=== PATIENT | female | born 1990 | race Caucasian/White ===

== ENCOUNTER 2017-10-30 15:36 | Emergency (ER) | payer BC ==
[2017-10-30] MEDS ORDERED: Ketorolac Tromethamine 30 MG/ML VIAL ONE (16:59)
[2017-10-30] MEDS ORDERED: Ondansetron ODT 4 MG TAB ONE (17:05)
[2017-10-30 17:17] LABS: #Basophils 0.1 thou/uL (0.0-0.2); #Eosinphils 0.1 thou/uL (0.0-0.7); #Lymphocytes 1.4 thou/uL (1.20-3.40); #Monocytes 0.5 thou/uL (0.11-0.59); %Basophils 0.6 % (0.0-1.0); %Eosinophils 0.6 % (0.0-10.0); %Lymphocytes 14.3 % (21.0-51.0); %Monocytes 4.9 % (0.0-10.0); %Neutrophils 79.6 % (42.0-75.0); Hemoglobin 13.2 g/dL (12.0-16.0); Mean Corpuscular HGB CONC 32.6 g/dL (32.0-36.0); Mean Corpuscular Hemoglobin 29.2 pg (27.0-31.0); Mean Corpuscular Volume 89.4 fl (81.0-99.0); Mean Platelet Volume 8.4 fL (7.4-10.4); Platelet Count 262 thou/uL (130-400); RBC Distribution Width 11.7 % (11.5-14.5); Red Blood Cell (RBC) Count 4.53 mill/uL (4.20-5.40)
[2017-10-30 18:02] LABS: Color Of CSF Supernatant COLORLESS (Colorless); Tube # 2; Unspun CSF Color COLORLESS (Colorless)
[2017-10-30 18:11] LABS: CSF Source CSF; Clarity Clear (Clear); RBC Count - Manual 1035 /cumm (None Seen); RBC Count - Manual 5 /cumm (None Seen); Tube # 1; Tube # 4; WBC/NonHematics Count - Manual 0 /cumm (0-5); WBC/NonHematics Count - Manual 1 /cumm (0-5)
[2017-10-30 18:17] LABS: Bilirubin Small (Negative); Blood, Urine Negative (Negative); Clarity Slightly Cloudy (Clear); Glucose, Urine (Dipstick) Negative (Negative); Leukocyte Negative (Negative); Nitrite Negative (Negative); Protein, Urine (Dipstick) Trace mg/dL (Neg-Trace); Urobilinogen 0.2 mg/dL (0.2-1.0); pH, Urine 5.5 (5.0-9.0)
[2017-10-30 18:22] LABS: Specific Gravity, Urine 1.027 (1.002-1.036)
[2017-10-30 18:24] LABS: CSF, Glucose 58 mg/dl (40-70); CSF, Protein 21 mg/dL (15-40)
== END 2017-10-30 18:30 | disposition home or self-care (01) ==
LOC: SCSER 15:36
DX: M54.2 Cervicalgia (principal); R51 Headache; Z79.899 Other long term (current) drug therapy
CPT/HCPCS: 36415; 62270; 81003; 82945; 84157; 85025; 87070; 87205; 89051; 96372; J1885; Q0162